=== PATIENT | male | born 1950 | race African-American/Black ===

== ENCOUNTER 2025-05-17 07:48 | Emergency (ER) | payer MEDICARE, MEDICAID ==
[2025-05-17] MEDS ORDERED: Ondansetron PF 4 MG/2 ML Vial ONE (08:01)
[2025-05-17] MEDS ORDERED: Pantoprazole 40 MG VIAL ONE (08:01)
[2025-05-17 08:22] LABS: #Basophils 0.04 10x3/uL (0.0-0.2); #Eosinophils 0.11 10x3/uL (0.0-0.7); #Monocytes 1.20 10x3/uL (0.11-0.59); #Neutrophils 8.66 10x3/uL (1.40-6.50); %Basophils 0.4 % (0.0-1.0); %Eosinophils 1.0 % (0.0-10.0); %Lymphocytes 7.1 % (21.0-51.0); %Monocytes 11.1 % (0.0-10.0); %Neutrophils 80.0 % (42.0-75.0); Hematocrit 35.6 % (42.0-52.0); Hemoglobin 12.4 g/dL (14.0-18.0); Mean Corpuscular Hemoglobin 30.1 pg (27.0-31.0); Mean Corpuscular Volume 86.4 fL (78.0-98.0); Platelet Count 297 10x3/uL (130-400); Red Blood Cell (RBC) Count 4.12 mill/uL (4.70-6.10); White Blood Cell (WBC) Count 10.82 10x3/uL (4.8-10.8)
[2025-05-17 08:39] LABS: Acetaminophen Less than 10 mcg/mL (Less than 10); Salicylate Less than 8.0 mg/dL (Less than 8.0)
[2025-05-17 08:41] LABS: ALT (SGPT) 26 U/L (Less than 45); AST (SGOT) 35 U/L (11-34); Albumin 3.8 g/dL (3.1-4.5); Alkaline Phosphatase 136 U/L (40-110); Anion Gap 15 mmol/L (10-20); BUN (Urea Nitrogen) 10 mg/dL (8.4-25.7); Bilirubin, Total 0.8 mg/dL (0.3-1.2); Calc. Creatinine Clearance 0 mL/min (70-130); Calcium 9.1 mg/dL (7.8-10.44); Carbon Dioxide 22 mmol/L (23-31); Chloride 100 mmol/L (98-107); Globulin 3.3 g/dL (2.4-3.5); Glucose 107 mg/dL (83-110); Lipase 10 U/L (8-78); Potassium 4.1 mmol/L (3.5-5.1); Sodium 133 mmol/L (136-145)
[2025-05-17 09:09] LABS: Bacteria/HPF None Seen HPF (None Seen); CAUTI Indications for Culture Pelvic or flank pain; Glucose, Urine (Dipstick) Normal (Negative); Leukocyte Negative Leu/uL (Negative); Protein, Urine (Dipstick) Negative (Neg-Trace); RBC/HPF 0-3 HPF (0-3); Specific Gravity, Urine 1.005 (1.002-1.036); WBC/HPF None Seen HPF (0-3)
[2025-05-17 09:11] LABS: Urine Culture Reflex No No
[2025-05-17] MEDS ORDERED: Lidocaine Viscous Sol 2% 15 ml UD Cup ONE (10:04)
[2025-05-17] MEDS ORDERED: Mag-Al 1200 mg/1200 mg/30 ML UDCUP ONE (10:04)
[2025-05-17] MEDS ORDERED: Iopamidol-370 76% 500 ML MDV (1 ML CHARGE) ONE (11:32)
== END 2025-05-17 11:03 | disposition home or self-care (01) ==
LOC: ERS 07:48
DX: K29.00 Acute gastritis without bleeding (principal); I11.0 Hypertensive heart disease with heart failure; I50.9 Heart failure, unspecified; Z87.891 Personal history of nicotine dependence
CPT/HCPCS: 71045; 74177; 80053; 80307; 81001; 83690; 84484; 85025; 93005; 96374; 96375; 99285; J2270; J2405; J2470; Q9967

== ENCOUNTER 2025-05-26 18:24 | Inpatient (IN) | payer MEDICARE, MEDICAID ==
[~2025-05-26 18:24] MED LIST: Iopamidol-370 76% 500 ML MDV (1 ML CHARGE) ONE
[2025-05-26 19:42] LABS: #Basophils 0.04 10x3/uL (0.0-0.2); #Eosinophils 0.03 10x3/uL (0.0-0.7); #Monocytes 0.83 10x3/uL (0.11-0.59); #Neutrophils 19.00 10x3/uL (1.40-6.50); %Basophils 0.2 % (0.0-1.0); %Eosinophils 0.1 % (0.0-10.0); %Lymphocytes 1.6 % (21.0-51.0); %Monocytes 4.1 % (0.0-10.0); %Neutrophils 93.1 % (42.0-75.0); Hematocrit 36.2 % (42.0-52.0); Hemoglobin 12.5 g/dL (14.0-18.0); Mean Corpuscular Hemoglobin 29.6 pg (27.0-31.0); Mean Corpuscular Volume 85.6 fL (78.0-98.0); Platelet Count 442 10x3/uL (130-400); Red Blood Cell (RBC) Count 4.23 mill/uL (4.70-6.10); White Blood Cell (WBC) Count 20.41 10x3/uL (4.8-10.8)
[2025-05-26 19:49] LABS: Bacteria/HPF None Seen HPF (None Seen); CAUTI Indications for Culture Pelvic or flank pain; Glucose, Urine (Dipstick) Normal (Negative); Leukocyte Negative Leu/uL (Negative); Protein, Urine (Dipstick) 30 mg/dL (Neg-Trace); RBC/HPF None Seen HPF (0-3); Specific Gravity, Urine 1.009 (1.002-1.036); WBC/HPF 0-3 HPF (0-3)
[2025-05-26 19:51] LABS: Urine Culture Reflex No No
[2025-05-26] MEDS ORDERED: Ondansetron PF 4 MG/2 ML Vial ONE (19:56)
[2025-05-26] MEDS ORDERED: Aspirin Chewable 81 MG TAB ONE (19:57)
[2025-05-26 20:10] LABS: Lipase 1006 U/L (8-78)
[2025-05-26 20:18] LABS: ALT (SGPT) 379 U/L (Less than 45); AST (SGOT) 752 U/L (11-34); Albumin 3.1 g/dL (3.1-4.5); Alkaline Phosphatase 526 U/L (40-110); Anion Gap 12 mmol/L (10-20); BUN (Urea Nitrogen) 5 mg/dL (8.4-25.7); Bilirubin, Total 1.0 mg/dL (0.3-1.2); Calc. Creatinine Clearance 0 mL/min (70-130); Calcium 8.8 mg/dL (7.8-10.44); Carbon Dioxide 28 mmol/L (23-31); Chloride 98 mmol/L (98-107); Globulin 4.3 g/dL (2.4-3.5); Glucose 118 mg/dL (83-110); Potassium 3.0 mmol/L (3.5-5.1); Sodium 135 mmol/L (136-145)
[2025-05-26 20:46] LABS: Acetaminophen Less than 10 mcg/mL (Less than 10); Salicylate Less than 8.0 mg/dL (Less than 8.0)
[2025-05-26 23:38] VITALS: BMI 32.6
[2025-05-26] MEDS ORDERED: Electrolyte Replacement Protocol 1 EACH FS SCH (23:45)
[2025-05-27] MEDS: Potassium Chloride 20 MEQ in Premix 1 BAG IVPB SCH (01:12)
[2025-05-27 05:07] LABS: Hematocrit 32.5 % (42.0-52.0); Hemoglobin 10.8 g/dL (14.0-18.0); Mean Corpuscular Hemoglobin 28.9 pg (27.0-31.0); Mean Corpuscular Volume 86.9 fL (78.0-98.0); Platelet Count 417 10x3/uL (130-400); Red Blood Cell (RBC) Count 3.74 mill/uL (4.70-6.10); White Blood Cell (WBC) Count 31.97 10x3/uL (4.8-10.8)
[2025-05-27 05:26] LABS: Lipase 820 U/L (8-78)
[2025-05-27 05:28] LABS: Anion Gap 14 mmol/L (10-20); BUN (Urea Nitrogen) 8 mg/dL (8.4-25.7); Calc. Creatinine Clearance 112 mL/min (70-130); Calcium 8.2 mg/dL (7.8-10.44); Carbon Dioxide 25 mmol/L (23-31); Chloride 101 mmol/L (98-107); Glucose 102 mg/dL (83-110); Potassium 3.6 mmol/L (3.5-5.1); Sodium 136 mmol/L (136-145)
[2025-05-27 05:39] LABS: Burr Cells SLIGHT = 2-5 cells HPF (0-1); Platelet Adequacy Comment Platelets Normal; Smudge Cells 5.9 %
[2025-05-27 06:30] LABS: ALT (SGPT) 347 U/L (Less than 45); AST (SGOT) 445 U/L (11-34); Albumin 2.5 g/dL (3.1-4.5); Alkaline Phosphatase 427 U/L (40-110); Bilirubin, Direct 1.3 mg/dL (0.1-0.3); Bilirubin, Total 1.6 mg/dL (0.3-1.2)
[2025-05-27] MEDS: NIFEdipine XL 60 MG ER.TAB PO SCH (08:42)
[2025-05-27] MEDS: Folic Acid 1 MG TAB PO SCH (08:42)
[2025-05-27] MEDS: Pantoprazole 40 MG DR.TAB PO SCH (08:43)
[2025-05-27] MEDS: Multivit, Therapeutic 1 TAB PO SCH (08:43)
[2025-05-27] MEDS: Cyanocobalamin (Vitamin B-12) 1,000 MCG TAB PO SCH (08:43)
[2025-05-27] MEDS: Metoprolol Succinate XL 50 MG ER.TAB PO SCH (08:43)
[2025-05-27] MEDS: Aspirin Chewable 81 MG TAB PO SCH (08:43)
[2025-05-27] MEDS: hydrALAZINE 10 MG TAB PO SCH (08:43)
[2025-05-27] MEDS: Allopurinol 100 MG TAB PO SCH (08:44)
[2025-05-27] MEDS: Ferrous Gluconate 324 MG TAB PO SCH (08:44)
[2025-05-27] MEDS: Lisinopril 20 MG TAB PO SCH (08:44)
[2025-05-27] MEDS ORDERED: Furosemide 40 MG TAB PO SCH (09:00)
[2025-05-27] MEDS ORDERED: Enoxaparin 40 MG (0.4 mL) SYRINGE SC SCH (09:00)
[2025-05-27] MEDS ORDERED: fentaNYL PF 100 MCG/2 ML SYRINGE ONE (13:59)
[2025-05-27] MEDS ORDERED: PROPOFOL 20 ML ONE (14:01)
[2025-05-27] MEDS ORDERED: Rocuronium Bromide 10 MG/ML (10ML VIAL) ONE (14:01)
[2025-05-27] MEDS ORDERED: SUGAMMADEX SODIUM 200 MG/2 ML VIAL ONE (14:03)
[2025-05-27] MEDS ORDERED: Ondansetron PF 4 MG/2 ML Vial ONE (14:03)
[2025-05-27] MEDS ORDERED: PHENYLEPHRINE-NS 100 MCG/ML 10 ML SYRINGE ONE (14:38)
[2025-05-28 07:30] LABS: ALT (SGPT) 252 U/L (Less than 45); AST (SGOT) 187 U/L (11-34); Albumin 2.8 g/dL (3.1-4.5); Alkaline Phosphatase 432 U/L (40-110); Anion Gap 16 mmol/L (10-20); BUN (Urea Nitrogen) 10 mg/dL (8.4-25.7); Bilirubin, Total 1.1 mg/dL (0.3-1.2); Calc. Creatinine Clearance 103 mL/min (70-130); Calcium 9.1 mg/dL (7.8-10.44); Carbon Dioxide 27 mmol/L (23-31); Chloride 99 mmol/L (98-107); Globulin 4.1 g/dL (2.4-3.5); Glucose 99 mg/dL (83-110); Potassium 3.2 mmol/L (3.5-5.1); Sodium 139 mmol/L (136-145)
[2025-05-28 07:33] LABS: #Basophils 0.03 10x3/uL (0.0-0.2); #Eosinophils Less than 0.03 10x3/uL (0.0-0.7); #Monocytes 0.77 10x3/uL (0.11-0.59); #Neutrophils 19.34 10x3/uL (1.40-6.50); %Basophils 0.1 % (0.0-1.0); %Eosinophils 0.0 % (0.0-10.0); %Lymphocytes 1.9 % (21.0-51.0); %Monocytes 3.7 % (0.0-10.0); %Neutrophils 93.1 % (42.0-75.0); Hematocrit 33.9 % (42.0-52.0); Hemoglobin 11.2 g/dL (14.0-18.0); Mean Corpuscular Hemoglobin 29.4 pg (27.0-31.0); Mean Corpuscular Volume 89.0 fL (78.0-98.0); Platelet Count 412 10x3/uL (130-400); Red Blood Cell (RBC) Count 3.81 mill/uL (4.70-6.10); White Blood Cell (WBC) Count 20.81 10x3/uL (4.8-10.8)
[2025-05-28] MEDS: Potassium Chloride 20 MEQ in Premix 1 BAG IVPB SCH (10:05)
[2025-05-29 05:13] LABS: #Basophils 0.04 10x3/uL (0.0-0.2); #Eosinophils 0.27 10x3/uL (0.0-0.7); #Monocytes 0.84 10x3/uL (0.11-0.59); #Neutrophils 14.07 10x3/uL (1.40-6.50); %Basophils 0.2 % (0.0-1.0); %Eosinophils 1.7 % (0.0-10.0); %Lymphocytes 4.4 % (21.0-51.0); %Monocytes 5.2 % (0.0-10.0); %Neutrophils 87.7 % (42.0-75.0); Hematocrit 34.6 % (42.0-52.0); Hemoglobin 11.4 g/dL (14.0-18.0); Mean Corpuscular Hemoglobin 29.2 pg (27.0-31.0); Mean Corpuscular Volume 88.7 fL (78.0-98.0); Platelet Count 385 10x3/uL (130-400); Red Blood Cell (RBC) Count 3.90 mill/uL (4.70-6.10); White Blood Cell (WBC) Count 16.06 10x3/uL (4.8-10.8)
[2025-05-29 05:28] LABS: Anion Gap 14 mmol/L (10-20); BUN (Urea Nitrogen) 8 mg/dL (8.4-25.7); Calc. Creatinine Clearance 114 mL/min (70-130); Calcium 9.2 mg/dL (7.8-10.44); Carbon Dioxide 25 mmol/L (23-31); Chloride 104 mmol/L (98-107); Glucose 96 mg/dL (83-110); Magnesium 1.5 mg/dL (1.6-2.6); Potassium 3.4 mmol/L (3.5-5.1); Sodium 140 mmol/L (136-145)
[2025-05-29] MEDS: Potassium Chloride 20 MEQ in Premix 1 BAG IVPB SCH (10:37)
[2025-05-29] MEDS: Magnesium 2 GM/50 ML(in water) 2 GM in Premix 1 BAG IVPB SCH (10:37)
[2025-05-29 12:37] LABS: INR-International Normal Ratio 1.1; Prothrombin Time 14.1 sec (12.0-14.7)
[2025-05-30] MEDS: Thiamine 100 MG TAB PO SCH (00:09)
[2025-05-30] MEDS: Calcium Carbonate 500 MG ChewTAB PO SCH (00:32)
[2025-05-30 05:18] LABS: #Basophils 0.03 10x3/uL (0.0-0.2); #Eosinophils 0.27 10x3/uL (0.0-0.7); #Monocytes 0.78 10x3/uL (0.11-0.59); #Neutrophils 9.90 10x3/uL (1.40-6.50); %Basophils 0.3 % (0.0-1.0); %Eosinophils 2.3 % (0.0-10.0); %Lymphocytes 5.6 % (21.0-51.0); %Monocytes 6.6 % (0.0-10.0); %Neutrophils 84.3 % (42.0-75.0); Hematocrit 33.5 % (42.0-52.0); Hemoglobin 11.0 g/dL (14.0-18.0); Mean Corpuscular Hemoglobin 29.3 pg (27.0-31.0); Mean Corpuscular Volume 89.1 fL (78.0-98.0); Platelet Count 384 10x3/uL (130-400); Red Blood Cell (RBC) Count 3.76 mill/uL (4.70-6.10); White Blood Cell (WBC) Count 11.75 10x3/uL (4.8-10.8)
[2025-05-30 05:43] LABS: ALT (SGPT) 123 U/L (Less than 45); AST (SGOT) 52 U/L (11-34); Albumin 2.7 g/dL (3.1-4.5); Alkaline Phosphatase 303 U/L (40-110); Anion Gap 14 mmol/L (10-20); BUN (Urea Nitrogen) 7 mg/dL (8.4-25.7); Bilirubin, Total 0.5 mg/dL (0.3-1.2); Calc. Creatinine Clearance 117 mL/min (70-130); Calcium 9.0 mg/dL (7.8-10.44); Carbon Dioxide 25 mmol/L (23-31); Chloride 104 mmol/L (98-107); Globulin 3.8 g/dL (2.4-3.5); Glucose 91 mg/dL (83-110); Magnesium 1.7 mg/dL (1.6-2.6); Potassium 3.9 mmol/L (3.5-5.1); Sodium 139 mmol/L (136-145)
[2025-05-30] MEDS ORDERED: Bupivacaine 0.25% HCL 30 ML VIAL ONE (09:58)
[2025-05-30] MEDS ORDERED: PROPOFOL 20 ML ONE (10:18)
[2025-05-30] MEDS ORDERED: fentaNYL PF 100 MCG/2 ML SYRINGE ONE (10:18)
[2025-05-30] MEDS ORDERED: Lidocaine 1% PF 5 ML VIAL ONE (10:19)
[2025-05-30] MEDS ORDERED: Rocuronium Bromide 10 MG/ML (10ML VIAL) ONE (10:19)
[2025-05-30] MEDS ORDERED: Ondansetron PF 4 MG/2 ML Vial ONE (11:44)
[2025-05-30] MEDS ORDERED: SUGAMMADEX SODIUM 200 MG/2 ML VIAL ONE (12:40)
[2025-05-30] MEDS ORDERED: HYDROmorphone 0.5 MG/0.5 ML SYRINGE ONE ×2 (13:46→13:53)
[2025-05-30] MEDS: HYDROcodone/Acetaminophen 10/325 mg Tablet PO PRN (15:35)
[2025-05-31] MEDS: Melatonin 3 MG TAB PO PRN (00:34)
[2025-05-31 05:34] LABS: #Basophils 0.04 10x3/uL (0.0-0.2); #Eosinophils 0.03 10x3/uL (0.0-0.7); #Monocytes 1.14 10x3/uL (0.11-0.59); #Neutrophils 15.37 10x3/uL (1.40-6.50); %Basophils 0.2 % (0.0-1.0); %Eosinophils 0.2 % (0.0-10.0); %Lymphocytes 3.0 % (21.0-51.0); %Monocytes 6.6 % (0.0-10.0); %Neutrophils 89.2 % (42.0-75.0); Hematocrit 38.0 % (42.0-52.0); Hemoglobin 11.9 g/dL (14.0-18.0); Mean Corpuscular Hemoglobin 28.7 pg (27.0-31.0); Mean Corpuscular Volume 91.6 fL (78.0-98.0); Platelet Count 373 10x3/uL (130-400); Red Blood Cell (RBC) Count 4.15 mill/uL (4.70-6.10); White Blood Cell (WBC) Count 17.23 10x3/uL (4.8-10.8)
[2025-05-31 05:51] LABS: ALT (SGPT) 93 U/L (Less than 45); AST (SGOT) 55 U/L (11-34); Albumin 2.8 g/dL (3.1-4.5); Alkaline Phosphatase 259 U/L (40-110); Anion Gap 13 mmol/L (10-20); BUN (Urea Nitrogen) 10 mg/dL (8.4-25.7); Bilirubin, Direct 0.3 mg/dL (0.1-0.3); Bilirubin, Total 0.6 mg/dL (0.3-1.2); Calc. Creatinine Clearance 127 mL/min (70-130); Calcium 8.8 mg/dL (7.8-10.44); Carbon Dioxide 19 mmol/L (23-31); Chloride 108 mmol/L (98-107); Glucose 91 mg/dL (83-110); Potassium 4.5 mmol/L (3.5-5.1); Sodium 135 mmol/L (136-145)
[2025-05-31] MEDS ORDERED: PROPOFOL 20 ML ONE (09:28)
[2025-05-31] MEDS ORDERED: Rocuronium Bromide 10 MG/ML (10ML VIAL) ONE (09:28)
[2025-05-31] MEDS ORDERED: Lidocaine 1% PF 5 ML VIAL ONE (09:28)
[2025-05-31] MEDS ORDERED: Ondansetron PF 4 MG/2 ML Vial ONE (10:12)
[2025-05-31] MEDS ORDERED: SUGAMMADEX SODIUM 200 MG/2 ML VIAL ONE (10:12)
[2025-06-01] MEDS: Calcium Carbonate 500 MG ChewTAB PO PRN (04:23)
[2025-06-01 05:21] LABS: #Basophils 0.05 10x3/uL (0.0-0.2); #Eosinophils 0.22 10x3/uL (0.0-0.7); #Monocytes 1.10 10x3/uL (0.11-0.59); #Neutrophils 9.00 10x3/uL (1.40-6.50); %Basophils 0.4 % (0.0-1.0); %Eosinophils 2.0 % (0.0-10.0); %Lymphocytes 6.5 % (21.0-51.0); %Monocytes 9.8 % (0.0-10.0); %Neutrophils 80.5 % (42.0-75.0); Hematocrit 34.5 % (42.0-52.0); Hemoglobin 10.9 g/dL (14.0-18.0); Mean Corpuscular Hemoglobin 28.7 pg (27.0-31.0); Mean Corpuscular Volume 90.8 fL (78.0-98.0); Platelet Count 380 10x3/uL (130-400); Red Blood Cell (RBC) Count 3.80 mill/uL (4.70-6.10); White Blood Cell (WBC) Count 11.19 10x3/uL (4.8-10.8)
[2025-06-01 05:38] LABS: ALT (SGPT) 69 U/L (Less than 45); AST (SGOT) 37 U/L (11-34); Albumin 2.6 g/dL (3.1-4.5); Alkaline Phosphatase 209 U/L (40-110); Anion Gap 14 mmol/L (10-20); BUN (Urea Nitrogen) 10 mg/dL (8.4-25.7); Bilirubin, Direct 0.4 mg/dL (0.1-0.3); Bilirubin, Total 0.7 mg/dL (0.3-1.2); Calc. Creatinine Clearance 104 mL/min (70-130); Calcium 8.7 mg/dL (7.8-10.44); Carbon Dioxide 23 mmol/L (23-31); Chloride 107 mmol/L (98-107); Glucose 92 mg/dL (83-110); Potassium 4.3 mmol/L (3.5-5.1); Sodium 140 mmol/L (136-145)
[2025-06-01] MEDS: Senokot S 8.6-50 MG TAB PO SCH (20:58)
[2025-06-02 05:12] LABS: #Basophils 0.06 10x3/uL (0.0-0.2); #Eosinophils 0.33 10x3/uL (0.0-0.7); #Monocytes 1.12 10x3/uL (0.11-0.59); #Neutrophils 8.92 10x3/uL (1.40-6.50); %Basophils 0.5 % (0.0-1.0); %Eosinophils 2.9 % (0.0-10.0); %Lymphocytes 6.0 % (21.0-51.0); %Monocytes 10.0 % (0.0-10.0); %Neutrophils 79.4 % (42.0-75.0); Hematocrit 32.3 % (42.0-52.0); Hemoglobin 10.3 g/dL (14.0-18.0); Mean Corpuscular Hemoglobin 28.9 pg (27.0-31.0); Mean Corpuscular Volume 90.5 fL (78.0-98.0); Platelet Count 386 10x3/uL (130-400); Red Blood Cell (RBC) Count 3.57 mill/uL (4.70-6.10); White Blood Cell (WBC) Count 11.24 10x3/uL (4.8-10.8)
[2025-06-02 05:32] LABS: ALT (SGPT) 49 U/L (Less than 45); AST (SGOT) 27 U/L (11-34); Albumin 2.4 g/dL (3.1-4.5); Alkaline Phosphatase 178 U/L (40-110); Anion Gap 11 mmol/L (10-20); BUN (Urea Nitrogen) 5 mg/dL (8.4-25.7); Bilirubin, Direct 0.3 mg/dL (0.1-0.3); Bilirubin, Total 0.5 mg/dL (0.3-1.2); Calc. Creatinine Clearance 119 mL/min (70-130); Calcium 8.7 mg/dL (7.8-10.44); Carbon Dioxide 24 mmol/L (23-31); Chloride 106 mmol/L (98-107); Glucose 92 mg/dL (83-110); Potassium 4.0 mmol/L (3.5-5.1); Sodium 137 mmol/L (136-145)
[2025-06-02] MEDS: Lisinopril 20 MG TAB PO SCH (08:26)
[2025-06-02 13:53] VITALS: BMI 31.4
[2025-06-03 05:09] LABS: #Basophils 0.04 10x3/uL (0.0-0.2); #Eosinophils 0.30 10x3/uL (0.0-0.7); #Monocytes 0.81 10x3/uL (0.11-0.59); #Neutrophils 7.49 10x3/uL (1.40-6.50); %Basophils 0.4 % (0.0-1.0); %Eosinophils 3.2 % (0.0-10.0); %Lymphocytes 8.1 % (21.0-51.0); %Monocytes 8.5 % (0.0-10.0); %Neutrophils 79.0 % (42.0-75.0); Hematocrit 30.7 % (42.0-52.0); Hemoglobin 9.9 g/dL (14.0-18.0); Mean Corpuscular Hemoglobin 28.9 pg (27.0-31.0); Mean Corpuscular Volume 89.8 fL (78.0-98.0); Platelet Count 406 10x3/uL (130-400); Red Blood Cell (RBC) Count 3.42 mill/uL (4.70-6.10); White Blood Cell (WBC) Count 9.49 10x3/uL (4.8-10.8)
[2025-06-03 05:30] LABS: ALT (SGPT) 40 U/L (Less than 45); AST (SGOT) 27 U/L (11-34); Albumin 2.4 g/dL (3.1-4.5); Alkaline Phosphatase 158 U/L (40-110); Anion Gap 11 mmol/L (10-20); BUN (Urea Nitrogen) 6 mg/dL (8.4-25.7); Bilirubin, Direct 0.3 mg/dL (0.1-0.3); Bilirubin, Total 0.5 mg/dL (0.3-1.2); Calc. Creatinine Clearance 105 mL/min (70-130); Calcium 8.6 mg/dL (7.8-10.44); Carbon Dioxide 25 mmol/L (23-31); Chloride 106 mmol/L (98-107); Glucose 102 mg/dL (83-110); Potassium 3.9 mmol/L (3.5-5.1); Sodium 138 mmol/L (136-145)
[2025-06-04] MEDS: Ketorolac Tromethamine 30 MG (1 mL) VIAL IVP PRN (00:52)
[2025-06-04 07:01] LABS: #Basophils 0.04 10x3/uL (0.0-0.2); #Eosinophils 0.32 10x3/uL (0.0-0.7); #Monocytes 0.83 10x3/uL (0.11-0.59); #Neutrophils 6.61 10x3/uL (1.40-6.50); %Basophils 0.5 % (0.0-1.0); %Eosinophils 3.7 % (0.0-10.0); %Lymphocytes 9.4 % (21.0-51.0); %Monocytes 9.6 % (0.0-10.0); %Neutrophils 76.0 % (42.0-75.0); Hematocrit 30.8 % (42.0-52.0); Hemoglobin 10.0 g/dL (14.0-18.0); Mean Corpuscular Hemoglobin 29.0 pg (27.0-31.0); Mean Corpuscular Volume 89.3 fL (78.0-98.0); Platelet Count 381 10x3/uL (130-400); Red Blood Cell (RBC) Count 3.45 mill/uL (4.70-6.10); White Blood Cell (WBC) Count 8.69 10x3/uL (4.8-10.8)
[2025-06-04 07:30] LABS: ALT (SGPT) 36 U/L (Less than 45); AST (SGOT) 29 U/L (11-34); Albumin 2.5 g/dL (3.1-4.5); Alkaline Phosphatase 156 U/L (40-110); Anion Gap 8 mmol/L (10-20); BUN (Urea Nitrogen) 7 mg/dL (8.4-25.7); Bilirubin, Direct 0.3 mg/dL (0.1-0.3); Bilirubin, Total 0.5 mg/dL (0.3-1.2); Calc. Creatinine Clearance 95 mL/min (70-130); Calcium 8.6 mg/dL (7.8-10.44); Carbon Dioxide 25 mmol/L (23-31); Chloride 107 mmol/L (98-107); Glucose 83 mg/dL (83-110); Potassium 4.0 mmol/L (3.5-5.1); Sodium 136 mmol/L (136-145)
[2025-06-04 08:39] LABS: Magnesium 1.5 mg/dL (1.6-2.6)
[2025-06-04] MEDS: Apixaban 5 MG TAB PO SCH (12:01)
[2025-06-04] MEDS: Magnesium 2 GM/50 ML(in water) 2 GM in Premix 1 BAG IVPB SCH (12:57)
[2025-06-05 05:57] LABS: #Basophils 0.06 10x3/uL (0.0-0.2); #Eosinophils 0.30 10x3/uL (0.0-0.7); #Monocytes 0.67 10x3/uL (0.11-0.59); #Neutrophils 7.85 10x3/uL (1.40-6.50); %Basophils 0.6 % (0.0-1.0); %Eosinophils 3.1 % (0.0-10.0); %Lymphocytes 6.2 % (21.0-51.0); %Monocytes 7.0 % (0.0-10.0); %Neutrophils 82.4 % (42.0-75.0); Hematocrit 30.6 % (42.0-52.0); Hemoglobin 10.0 g/dL (14.0-18.0); Mean Corpuscular Hemoglobin 28.9 pg (27.0-31.0); Mean Corpuscular Volume 88.4 fL (78.0-98.0); Platelet Count 385 10x3/uL (130-400); Red Blood Cell (RBC) Count 3.46 mill/uL (4.70-6.10); White Blood Cell (WBC) Count 9.54 10x3/uL (4.8-10.8)
[2025-06-05 06:35] LABS: ALT (SGPT) 32 U/L (Less than 45); AST (SGOT) 30 U/L (11-34); Albumin 2.6 g/dL (3.1-4.5); Alkaline Phosphatase 148 U/L (40-110); Anion Gap 10 mmol/L (10-20); BUN (Urea Nitrogen) 6 mg/dL (8.4-25.7); Bilirubin, Total 0.4 mg/dL (0.3-1.2); Calc. Creatinine Clearance 100 mL/min (70-130); Calcium 8.8 mg/dL (7.8-10.44); Carbon Dioxide 22 mmol/L (23-31); Chloride 108 mmol/L (98-107); Globulin 3.7 g/dL (2.4-3.5); Glucose 93 mg/dL (83-110); Potassium 4.1 mmol/L (3.5-5.1); Sodium 136 mmol/L (136-145)
[2025-06-05 07:02] LABS: Magnesium 1.8 mg/dL (1.6-2.6)
[2025-06-05 08:39] VITALS: TEMP 97.9
[2025-06-05] MEDS: Magnesium 2 GM/50 ML(in water) 2 GM in Premix 1 BAG IVPB SCH (11:57)
[2025-06-05 11:59] VITALS: BP 152/76
== END 2025-06-05 12:55 | disposition home or self-care (01) | DRG 417 ==
LOC: ERS 18:24 → OBS 21:59 → T4-A 06-03 17:32
PROVIDERS: ADMIT Student in an Organized Health Care Education/Training Program; ATTEND Student in an Organized Health Care Education/Training Program
PROC: 3E03329 Introduction of Other Anti-infective into Peripheral Vein, Percutaneous Approach (ICD-10-PCS; 2025-05-26)
PROC: 3E033XZ Introduction of Vasopressor into Peripheral Vein, Percutaneous Approach (ICD-10-PCS; 2025-05-26)
PROC: 0FT44ZZ Resection of Gallbladder, Percutaneous Endoscopic Approach (ICD-10-PCS; principal; 2025-05-30)
PROC: BF131ZZ Fluoroscopy of Gallbladder and Bile Ducts using Low Osmolar Contrast (ICD-10-PCS; 2025-05-30)
PROC: 0F798DZ Dilation of Common Bile Duct with Intraluminal Device, Via Natural or Artificial Opening Endoscopic (ICD-10-PCS; 2025-05-31)
DX: K80.42 Calculus of bile duct with acute cholecystitis without obstruction (principal); K85.90 Acute pancreatitis without necrosis or infection, unspecified; E87.1 Hypo-osmolality and hyponatremia; F10.239 Alcohol dependence with withdrawal, unspecified; K55.1 Chronic vascular disorders of intestine; I50.32 Chronic diastolic (congestive) heart failure; J95.812 Postprocedural air leak; I48.92 Unspecified atrial flutter; I11.0 Hypertensive heart disease with heart failure; E83.42 Hypomagnesemia; M10.9 Gout, unspecified; N40.0 Benign prostatic hyperplasia without lower urinary tract symptoms; F19.10 Other psychoactive substance abuse, uncomplicated; Z98.890 Other specified postprocedural states; E87.6 Hypokalemia; D72.829 Elevated white blood cell count, unspecified; D64.9 Anemia, unspecified; I25.10 Atherosclerotic heart disease of native coronary artery without angina pectoris; Z95.0 Presence of cardiac pacemaker; Z79.899 Other long term (current) drug therapy; Z79.82 Long term (current) use of aspirin; Z95.1 Presence of aortocoronary bypass graft
CPT/HCPCS: 36415; 36416; 71045; 71275; 74174; 74330; 78452; 80048; 80053; 80076; 80307; 81001; 83690; 83735; 84100; 84484; 85025; 85610; 87040; 88304; 93005; 93017; 93306; 96374; 96375; A6258; A9502; C1713; C1889; C2625; J0169; J0665; J1100; J1171; J1885; J2060; J2543; J2704; J2785; J3411; J3475; J3480; J7120; Q9967

== ENCOUNTER 2025-08-03 10:00 | Outpatient (CLI) | payer MEDICARE, MEDICAID ==
[~2025-08-03 10:00] MED LIST changes: +Iopamidol 370 76% 100 ML VIAL ONE; -Iopamidol-370 76% 500 ML MDV (1 ML CHARGE) ONE
[2025-08-03 10:23] LABS: Estimated GFR - POC 71.0
== END 2025-08-03 10:01 | disposition home or self-care (01) ==
LOC: CT 10:00
PROVIDERS: ATTEND Thoracic Surgery (Cardiothoracic Vascular Surgery)
DX: I70.203 Unspecified atherosclerosis of native arteries of extremities, bilateral legs (principal); I77.1 Stricture of artery; K55.1 Chronic vascular disorders of intestine; I77.4 Celiac artery compression syndrome; I70.1 Atherosclerosis of renal artery; I73.9 Peripheral vascular disease, unspecified; K76.9 Liver disease, unspecified
CPT/HCPCS: 36415; 75635; 82565